=== PATIENT | female | born 1990 | race Caucasian/White ===

== ENCOUNTER 2020-02-07 17:42 | Emergency (ER) | payer SELFPAY ==
--- NOTE | 2020-02-07 18:35 | ER Document Report ---
ED Medical Screen (RME) - General Chief Complaint: Psych Problem Stated Complaint: PSYCH EVAL Time Seen by Provider: 02/07/20 18:19 - HPI Notes: 02/07/20 18:27 29 yr old female presents today with complaints of feeling like she is going to have a "mental breakdown". 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 Denies any nausea vomiting diarrhea, abdominal pain, chest pain or shortness of breath, fevers or chills. Patient has been taking hydroxyzine to help her sleep but this is not helping. She is currently on her menstrual cycle, is not on control. Denies any homicidal suicidal ideations. Her therapist told her to come to the emergency room for further evaluation. I have greeted and performed a rapid initial assessment of this patient. A comprehensive ED assessment and evaluation of the patient, analysis of test results and completion of the medical decision making process will be conducted by additional ED providers. PHYSICAL EXAMINATION: GENERAL: Well-appearing, well-nourished and in mild distress HEAD: Atraumatic, normocephalic. EYES: Pupils equal round extraocular movements intact, conjunctiva are normal. NECK: Normal range of motion CV: s1, s2 regular LUNGS: No respiratory distress Musculoskeletal: Normal range of motion NEUROLOGICAL: Normal speech, normal gait. psych: crying SKIN: Warm, Dry, normal turgor, no rashes or lesions noted. - Related Data Allergies/Adverse Reactions: cats Allergy (Uncoded 02/07/20 18:20) Physical Exam - Vital signs Vitals: Temp Pulse Resp BP Pulse Ox 98.2 F 105 H 18 141/88 H 97 02/07/20 17:46 02/07/20 17:46 02/07/20 17:46 02/07/20 17:46 02/07/20 17:46 Course - Vital Signs Vital signs: Temp Pulse Resp BP Pulse Ox 98.2 F 105 H 18 141/88 H 97 02/07/20 17:46 02/07/20 17:46 02/07/20 17:46 02/07/20 17:46 02/07/20 17:46
--- NOTE | 2020-02-07 18:55 | EKG REPORT ---
SEVERITY:- NORMAL ECG - SINUS RHYTHM : Confirmed by: Jason Barnes MD 07-Feb-2020 18:54:26
[2020-02-07 19:15] LABS: ABSOLUTE EOSINOPHILS # (AUTO) 0.3 10^3/uL (0.0-0.6); ABSOLUTE MONOCYTES (AUTO) 0.5 10^3/uL (0.1-1.4); ABSOLUTE NEUT (AUTO) 4.3 10^3/uL (1.7-8.2); BASOPHILS % (AUTO) 0.6 % (0-2); EOSINOPHILS % (AUTO) 3.3 % (0-6); HEMATOCRIT 43.4 % (36.0-47.0); HEMOGLOBIN 15.4 g/dL (12.0-15.5); LYMPHOCYTES % (AUTO) 37.2 % (13-45); MEAN CORPUSCULAR HEMOGLOBIN 32.1 pg (27.0-33.4); MEAN CORPUSCULAR HGB CONC 35.6 g/dL (32.0-36.0); MEAN CORPUSCULAR VOLUME 90 fl (80-97); MONOCYTES % (AUTO) 5.9 % (3-13); PLATELET COUNT 193 10^3/uL (150-450); RED BLOOD COUNT 4.81 10^6/uL (3.72-5.28); RED CELL DISTRIBUTION WIDTH 12.9 % (11.5-14.0); TOTAL CELLS COUNTED % (AUTO) 100 %; WHITE BLOOD COUNT 8.1 10^3/uL (4.0-10.5)
[2020-02-07 19:23] LABS: APPEARANCE,URINE CLEAR; BILIRUBIN,URINE NEGATIVE (NEGATIVE); COLOR,URINE YELLOW; GLUCOSE, URINE NEGATIVE (NEGATIVE); KETONES,URINE TRACE mg/dL (NEGATIVE); LEUKOCYTE ESTERASE,URINE NEGATIVE (NEGATIVE); NITRITE,URINE NEGATIVE (NEGATIVE); PROTEIN,URINE NEGATIVE (NEGATIVE); URINE SPECIFIC GRAVITY 1.023; UROBILINOGEN,URINE NEGATIVE mg/dL (<2.0)
[2020-02-07 19:33] LABS: ALBUMIN 4.6 g/dL (3.5-5.0); ALCOHOL 92 mg/dL (NONE DETECTED); ALKALINE PHOSPHATASE 88 U/L (38-126); ANION GAP 11 (5-19); ASPARTATE AMINO TRANSFERASE 28 U/L (14-36); BILIRUBIN,DIRECT 0.2 mg/dL (0.0-0.4); BILIRUBIN,TOTAL 0.6 mg/dL (0.2-1.3); BLOOD UREA NITROGEN 13 mg/dL (7-20); CALCIUM 9.2 mg/dL (8.4-10.2); CARBON DIOXIDE 26 mmol/L (22-30); CHLORIDE 104 mmol/L (98-107); GLUCOSE 116 mg/dL (75-110); POTASSIUM 3.8 mmol/L (3.6-5.0); TOTAL PROTEIN 7.4 g/dL (6.3-8.2)
[2020-02-07 19:34] LABS: ACETAMINOPHEN < 10 ug/mL (10-30); SALICYLATE < 1.0 mg/dL (2.0-20.0)
[2020-02-07 19:43] LABS: URINE AMPHETAMINES SCREEN NEGATIVE; URINE BARBITURATES SCREEN NEGATIVE; URINE BENZODIAZEPINES SCREEN NEGATIVE; URINE COCAINE SCREEN NEGATIVE; URINE MARIJUANA (THC) SCREEN NEGATIVE; URINE METHADONE SCREEN NEGATIVE; URINE PHENCYCLIDINE SCREEN NEGATIVE
[2020-02-07] MEDS ORDERED: LORAZEPAM INJ 2 MG/1 ML VIAL IM ONE (19:55)
--- NOTE | 2020-02-07 20:02 | ER Document Report ---
ED General - General Chief Complaint: Psych Problem Stated Complaint: PSYCH EVAL Time Seen by Provider: 02/07/20 18:19 - HPI Notes: Patient is a 29-year-old female with a history of depression/anxiety, who comes to the emergency department for evaluation because she thinks she is having "a breakdown." She is in law school. She has increased depression and anxiety. She is not sleeping. She has been trying hydroxyzine, previously prescribed for anxiety, without any help. She admits she is been having alcoholic beverages in an attempt to help her sleep, she states they are not helping either. She denies any other drug use. She denies any suicidal or homicidal ideation. No visual or auditory hallucination. - Related Data Allergies/Adverse Reactions: cats Allergy (Uncoded 02/07/20 18:20) Home Medications: Hydroxyzine as needed Past Medical History - General Information source: Patient - Social History Smoking Status: Never Smoker Chew tobacco use (# tins/day): No Frequency of alcohol use: Occasional Drug Abuse: None Family History: Other - Depression Psychiatric Medical History: Reports: Hx Anxiety, Hx Depression Past Surgical History: Reports: Hx Herniorrhaphy Review of Systems - Review of Systems Constitutional: See HPI EENT: No symptoms reported Cardiovascular: No symptoms reported Respiratory: No symptoms reported Gastrointestinal: No symptoms reported Genitourinary: No symptoms reported Female Genitourinary: No symptoms reported Musculoskeletal: No symptoms reported Skin: No symptoms reported Neurological/Psychological: See HPI -: Yes All other systems reviewed and negative Physical Exam - Vital signs Vitals: Temp Pulse Resp BP Pulse Ox 98.2 F 105 H 18 141/88 H 97 02/07/20 17:46 02/07/20 17:46 02/07/20 17:46 02/07/20 17:46 02/07/20 17:46 - Notes Notes: This is a very pleasant 29-year-old female who appears her stated age. She is mildly distressed, tearful, anxious in appearance. She does not appear to be reacting to internal stimuli. She is cooperative with examiner. Vital signs reviewed, please refer to chart. Head is normocephalic, atraumatic. Pupils equal round, reactive to light. Neck is supple without meningismus. Heart is regular rate and rhythm. Lungs are clear to auscultation bilaterally. Abdomen is soft, nontender, normoactive bowel sounds throughout. Extremities without cyanosis, clubbing. Posterior calves are nontender. Peripheral pulses are equal. Skin is warm and dry. Patient is awake, alert, neurological exam is nonfocal. Course - Re-evaluation Re-evalutation: 02/07/20 20:01 Patient presents to the emergency department for evaluation. Her laboratory investigations are unremarkable, still awaiting TSH. Otherwise, patient does appear to be having significant depression anxiety, but she has never been h ospitalized before, I do not see any reason to do that at this time. Rhys, our licensed psychosocial chemist biological, did discuss this case with the patient's father, who is a physician. We will start her on BuSpar. I did give her some Ativan. I will write him a small amount of Ativan for the next several days to help her with her anxiety, while we titrate her on the BuSpar. She is amenable to this. - Vital Signs Vital signs: Temp Pulse Resp BP Pulse Ox 98.1 F 104 H 19 143/77 H 100 02/07/20 20:56 02/07/20 20:56 02/07/20 20:56 02/07/20 20:56 02/07/20 20:56 - Laboratory Result Diagrams: 02/07/20 18:50 02/07/20 18:50 Laboratory results interpreted by me: 02/07/20 02/07/20 18:10 18:50 Glucose 116 H Urine Ketones TRACE H Urine Blood LARGE H Salicylates < 1.0 L Acetaminophen < 10 L - EKG Interpretation by Me Additional EKG results interpreted by me: 02/07/20 21:16 Sinus mechanism with a rate of 99 bpm. Normal axis and intervals. No acute ST changes concerning for ischemia or infarction. Discharge - Discharge Clinical Impression: Anxiety Depression Qualifiers: Major depression recurrence: single episode Psychotic features: without psy chotic features Condition: Stable Disposition: HOME, SELF-CARE Instructions: Anxiety (OM), Depression (OM) Additional Instructions: Take medication as prescribed. Please do not drink alcohol with the Ativan. Please do not use alcohol as a coping mechanism for depression anxiety. Follow- up with your primary care provider, as well as counseling services through your school. If you develop worsening or new concerning symptoms of any sort, including but certainly not limited to thoughts of hurting yourself or others, please return immediately to the ER for further evaluation. Prescriptions: Lorazepam [Ativan 1 mg Tablet] 1 mg PO BIDP PRN #10 tab PRN Reason: Buspirone HCl [Buspar 10 mg Tablet] 10 mg PO BID #30 tablet
[2020-02-07 20:58] VITALS: BP 143/77
== END 2020-02-07 20:59 | disposition home or self-care (01) ==
LOC: ER 17:42
DX: F41.9 Anxiety disorder, unspecified (principal); F32.9 Major depressive disorder, single episode, unspecified; Z91.048 Other nonmedicinal substance allergy status
CPT/HCPCS: 93005; 99284; 96372; 36415; 80307 ×4; 84443; 84703; 85025; 80053; 81001; 93010; J2060